=== PATIENT | female | born 1980 | race Caucasian/White ===

== ENCOUNTER 2016-11-15 05:51 | Day surgery (SDC) | payer OTHER ==
[2016-11-15] VITALS (23 sets, daily range): BP systolic 81–114; BP diastolic 39–66; PULSE 59–108; RESP 14–21; O2SAT 93–100
[~2016-11-15] VITALS: Ht 167.6 cm; Wt 109.2 kg
[~2016-11-15 05:51] MED LIST: CA C1TAB77 PO; FLUT16SP NS; MULT-1018 PO; ONDA-53 PO; PENT100C9 PO; PHEN-777 PO
[2016-11-15] MEDS ORDERED: Morphine PF 1 mg/mL 10 mL Inj ONE (05:52)
[2016-11-15] MEDS ORDERED: Dexamethasone 4 mg/mL Inj ONE (05:52)
[2016-11-15] MEDS ORDERED: MetoCLOpramide 5 mg/mL 2 mL Inj ONE (05:52)
[2016-11-15] MEDS ORDERED: Phenylephrine/NS 100 mCg/mL 10 mL Syringe IVPUSH ONE (05:52)
[2016-11-15] MEDS ORDERED: Ketamine 10 mg/mL 20 mL Inj ONE (05:52)
[2016-11-15] MEDS ORDERED: Propofol 10,000 mCg/mL 20 mL Inj ONE (05:52)
[2016-11-15] MEDS ORDERED: Ondansetron 2 mg/mL 2 mL Inj ONE (05:52)
[2016-11-15] MEDS ORDERED: Bupivacaine-MPF 0.75% 30 mL Inj ONE (05:52)
[2016-11-15] MEDS ORDERED: Rocuronium 10 mg/mL 5 mL Inj ONE (05:52)
[2016-11-15] MEDS ORDERED: Clindamycin 900 mg/50 mL D5W IV ONE (06:00)
[2016-11-15] MEDS ORDERED: Phenazopyridine 97.5 mg Tablet PO ONE (06:00)
[2016-11-15] MEDS: Lactated Ringer's 1,000 ML IV SCH ×6 (06:34→21:37)
--- NOTE | 2016-11-15 07:19 | PCM.HPANE ---
Patient Data Surgeon Admitting Provider: Attending Provider:Robin Galicia MD Primary Care Physician:Other,Physician Other Provider:Jhonatan Blum Anesthesia Reason for Visit Uterovag Prolapse,Pelvic Pain,Interstitial Cystiti Ht/WT & BMI Height (Feet): 5 Height (Inches): 6 Weight (Kilograms): 107.4 Body Mass Index 38.00 Allergies Coded Allergies: morphine (Verified Allergy, Severe, ITCHING AND BURNING, 11/15/16) amoxicillin (Verified Allergy, Unknown, rash, respiratory distress, 11/08/16 ) clavulanic acid (Verified Allergy, Unknown, rash, respiratory distress, 11/08/16) rizatriptan (Verified Allergy, Unknown, neck pains, dizziness, vomiting, ) zolmitriptan (Verified Allergy, Unknown, neck pains, dizziness, vomiting, 11/08/16) Past Anesthesia History Anesthesia History: Positive for:: Anesthesia Reactions (BP "crashed"), Denies:: Abnormal Airway, Difficult Intubation, Fam Anesthesia Reaction, Fam Malignant Hypertherm, Malignant Hyperthermia Diabetes History Hx Diabetes?: No MRSA MRSA: No Medications Hypertension Medication: No Home Meds Incl Beta Colin: No Reported Medications Ca Carb/Vit D3/Mag Ox/Zn Oxide (Valentin Mag Zinc + D3 Tablet)1 Each Tablet1 Each PO DAILY 11/08/16 Multivitamin (Multi Vitamin Daily)1 Each Tablet1 Each PO DAILY 30 Days Ref 0 11/08/16 Pentosan Polysulfate Sodium (Elmiron)100 Mg [id number] Mg PO TID 11/08/16 Fluticasone Propionate (Fluticasone Propionate Nasal)16 Gm [place].susp2 [place] NS BID #16 GM Ref 0 11/08/16 Phenazopyridine 200 Mg [id number] Mg PO TID PRN For Pain Ref 0 11/08/16 Ondansetron 4 Mg Tablet4 Mg PO For Nausea 11/08/16 History History of ENT Problems?: Yes HEENT History: Positive for:: Sinus Problem (sinus surgery x 2- , poss sinus infection now) Denies:: Abnormal Airway Cataracts Difficult Intubation Dysphagia Glaucoma Hearing Problem Denture Type: None Teeth Condition: Within Normal Limits Other HEENT Pertinent History: tear in retina bottom right eye- opthamologist - GEORGE jeanette Hx of Heart Problems?: No Cardiovascular History: Positive for:: Irregular Heartbeat (during only) Denies:: AICD Abdominal Aortic Aneurism Atrial Fibrillation Cardiac Surgery Chest Pain Congestive Heart Failure Coronary Artery Disease Edema Heart Murmur Hypertension Pacemaker Peripheral Vascular Rheumatic Fever Thrombophlebitis Valvular Heart Disease Hx of Respiratory Problem?: Yes Respiratory History: Positive for:: Use of C-PAP Machine (CPAP currently broken, ) Denies:: Asthma COPD Oxygen Administration Pneumonia Tuberculosis Use of Inhalers / NEBS Hx Neurologic Problems?: Yes Neurological History: Positive for:: Headaches (migraines once monthly, sinus juarez 1-2x weekly) Denies:: Multiple Sclerosis Parkinson's Disease Seizures Hx of GI Problems?: Yes Hx of Problems?: Yes Genitourinary History: Denies:: Kidney Stones Urinary Tract Infection Other Pertinent History: Interstitial cystitis hx - Female Hx: Denies:: Currently Problems with Breasts? Skin History: Denies:: History Skin Disorders? Pressure Ulcers Hx Musculoskeletal Problems?: Yes Musculoskeletal History: Positive for:: Fibromyalgia Denies:: Back Injury Musculoskeletal Trauma Myasthenia Gravis Osteoarthritis Hx of Psycho/Social Problems?: No Psycho Social History: Denies:: Anxiety Hx Depression Hx Surgeries?: Yes (lap scottie, c section x 2, sinus surgery) Hx Any Other Health Problems?: Yes Other History: Denies:: Cancer Thyroid Disease History Blood Transfusions: Positive for:: Accept Blood Products? Denies:: Blood Transfusions Hx Diabetes: No Hx Alcohol Use: NoHx Substance Use: NoHave You Smoked inLast 12 mo: No Stop/Bang Treated for Sleep Apnea?: No Do You Have a CPAP Machine?: No P-Blood Pressure: treated: No B- Body Mass Index > 35 kg/m2: Yes A- Age over 50: No N- Neck Large Circumference: No G- Gender Male: No REBECCA Risk Assessment: High Risk, =/>3 Yes Risk Assessment Category Category 1A: Patient has history of documented sleep apnea, and HAS NOT received any narcotic, sedative or anesthesia administration during this stay. Category 1B: Patient has history of documented sleep apnea, and HAS received any narcotic , sedative or anesthesia administration during this stay Category 2: Patient has SUSPECTED Obstructive Sleep Apnea, and HAS received any narcotic , sedative or anesthesia administration during this stay. Category 3: Patient has SUSPECTED Obstructive Sleep Apnea and HAS NOT received narcotic, sedative or anesthesia administration during this stay. Category 4: Outpatient in Procedural Areas with known sleep apnea or who screen positive for High Risk via the STOP/BANG questionnaire. Exam Exam Vital Signs Vital Signs Date Time Temp Pulse Resp B/P Pulse Ox O2 Delivery O2 Flow Rate FiO2 11/15/16 06:35 36.4 71 16 102/56 100 Room Air General Appearance: Oriented X3 HEENT/AIRWAY: MP 2 Lungs: Normal Air Movement Heart: Regular Rate/Rhythm Meds/Labs/Diagnostics Admission Meds Current Medications Lactated Ringer's (Lr) 1,000 ml @ 120 mls/hr Q8H20M IV Last administered on 06:34; Start 11/15/16 at 05:00; Stop 11/15/16 at 13:19 Phenazopyridine HCl (Azo Standard) 2 tab ONCE ONCE PO Last administered on 11/15 06:57; Start 11/15/16 at 06:00; Stop 11/15/16 at 06:01; Status DC Plan Impression Patient chart reviewed, patient interviewed and anesthestic plan with risks, benefits, and alternatives discussed, and informed consent obtained. ASA Physical Status: ASA2 Mod Systemic Disease Anesthetic Plan: GA, SAB Bene/Risks/Altern/Consents: Yes HP Complete Prior to Induction: Yes Arnaldo Cherry MD Nov 15, 2016 07:19
[2016-11-15] MEDS: Gentamicin Inj 400 MG in Dextrose 5% 100 ML IV SCH ×2 (07:35→15:03)
[2016-11-15] MEDS ORDERED: Lactated Ringer's 500 ML IV PRN (08:04)
[2016-11-15] MEDS ORDERED: Lactated Ringer's 1,000 ML IV SCH (08:04)
[2016-11-15] MEDS ORDERED: Phenylephrine 10,000 mCg/mL Inj IVPUSH PRN (08:05)
[2016-11-15] MEDS ORDERED: Ondansetron 2 mg/mL 2 mL Inj IVPUSH PRN ×2 (08:05→13:40)
[2016-11-15] MEDS ORDERED: MetoCLOpramide 5 mg/mL 2 mL Inj IVPUSH PRN ×2 (08:05→13:40)
[2016-11-15] MEDS ORDERED: fentaNYL-PF 50 mCg/mL 2 mL Inj IVPUSH PRN (08:05)
[2016-11-15] MEDS ORDERED: Labetalol 5 mg/mL 4 mL Inj IV PRN (08:05)
[2016-11-15] MEDS ORDERED: EPHEDrine Sulfate 50 mg/mL Inj IVPUSH PRN (08:05)
[2016-11-15] MEDS ORDERED: Dexamethasone 4 mg/mL Inj IVPUSH PRN (08:05)
[2016-11-15] MEDS ORDERED: Lidocaine 1%-Epi 1:100,000 20 mL Inj INJ ONE (09:21)
[2016-11-15] MEDS ORDERED: Sodium Chloride Bacteriostatic 30 mL Inj INJ ONE ×3 (09:21→12:10)
[2016-11-15] MEDS ORDERED: Gentamicin 40 mg/mL 2 mL Inj IRRIGATION ONE (09:22)
[2016-11-15] MEDS ORDERED: Lidocaine 1%-Epi 1:100,000 20 mL Inj INFILTRATE ONE (10:46)
[2016-11-15] MEDS ORDERED: Lidocaine 1%-Epi 1:100,000 20 mL Inj NERVEBLOCK ONE (12:09)
[2016-11-15] MEDS ORDERED: Estrogens Conjugated 30 Gm Vaginal Cream VAGINAL ONE (12:44)
[2016-11-15] MEDS ORDERED: Alum-Mag Hydrox-Simeth 30 mL Suspension PO PRN (13:40)
[2016-11-15] MEDS ORDERED: HYDROmorphone 1 mg/mL Inj IVPUSH PRN (13:40)
[2016-11-15] MEDS ORDERED: diphenhydrAMINE 25 mg Capsule PO PRN (13:40)
[2016-11-15] MEDS ORDERED: Phenylephrine/NS-PF 100 mCg/mL 5 mL Syringe IVPUSH ONE (14:02)
[2016-11-15] MEDS: Ondansetron 2 mg/mL 2 mL Inj IVPUSH PRN (14:07)
--- NOTE | 2016-11-15 14:45 | PCM.ANEP1 ---
Post Anesthesia PACU Phase 1 Assessment Vital Signs Vital Signs Date Time Temp Pulse Resp B/P Pulse Ox O2 Delivery O2 Flow Rate FiO2 11/15/16 14:40 90 16 96/50 100 Nasal Cannula 3 11/15/16 14:27 92 21 93/50 100 Nasal Cannula 3 11/15/16 14:17 89 15 99/50 100 Nasal Cannula 3 11/15/16 14:17 15 100 11/15/16 14:09 87 14 91/52 99 Nasal Cannula 3 11/15/16 14:05 88 16 90/52 99 Nasal Cannula 3 11/15/16 14:00 91 16 84/39 99 Nasal Cannula 3 11/15/16 13:55 103 19 91/48 100 Simple Mask 10 11/15/16 13:51 89 16 91/53 100 Simple Mask 10 11/15/16 13:45 95 16 88/50 100 Simple Mask 10 11/15/16 13:40 108 15 92/50 100 Simple Mask 10 11/15/16 13:35 37.4 97 18 114/65 100 Simple Mask 10 Anesthetic Administered: GA Level of Alertness: Awake, talking Pain: No Nausea or Vomiting: No CV Function & Hydration Stable: Yes Airway Device: Lungs: Normal Air Movement Dermatome Level: S2,5 (Perineum) PACU Phase 2 Assessment Patient Instructions Provided: N/A Arnaldo Cherry MD Nov 15, 2016 14:45
--- NOTE | 2016-11-15 15:10 | NUR ---
Post op Arrived to [facility] room 1031 from PACU via stretcher at ~14:45. Report received from Miranda. Pale, diaphoretic, nauseated. BP 83/54, HR 89. Placed Trendelenburg, started LR per orders. Skin now pink, warm and dry. BP up to 95/65 (baseline pre-op 102/70). RA. Lap sites/bandaids and bernardino-pad CDI. Drowsy, wakes easily to voice, oriented. Father at bedside.
[2016-11-15] MEDS ORDERED: Phenazopyridine 97.5 mg Tablet PO PRN (15:25)
[2016-11-15] MEDS: ELMIRON 100 MG PO SCH (16:34)
[2016-11-15] MEDS: Acetaminophen IV 1,000 MG in IV Premix 1 EACH IV SCH ×2 (16:35→22:38)
--- NOTE | 2016-11-15 18:03 | NUR ---
Hypotension Pt hypotensive and intermittently symptomatic with nausea, weak radial pulse and diaphoretic pale skin. Resolves with Trendelenburg position. Reglan given, IVF infusing as ordered. paged; H/H ordered.
[2016-11-15] MEDS ORDERED: 0.9% Sodium Chloride 500 ML IV SCH (18:25)
--- NOTE | 2016-11-15 19:06 | NUR ---
Fluid bolus 500 cc NS bolus given as ordered. Pulse 65, BP 84/51. Asymptomatic at this time. Report given to BETTY PAYTON.
[2016-11-15] MEDS ORDERED: Fluticasone 0.05% 15 Spray/2 Gm 16 Gm Nasal Spray NASAL SCH (20:30)
--- NOTE | 2016-11-15 22:54 | PCM.SURGOP ---
Surgical Operative Report Date of Service: Nov 15, 2016 Pre Operative Diagnosis 1. Pelvic pain in female R10.2 (625.9): 2. Menorrhagia with irregular cycle N92.1 (626.2): 3. Uterovaginal prolapse, incomplete N81.2 (618.2): 4. Cystocele, midline N81.11 (618.01): 5. Rectocele N81.6 (618.04): 6. Hx interstitial cystitis Post Operative Diagnosis 1. Pelvic pain in female R10.2 (625.9): 2. Menorrhagia with irregular cycle N92.1 (626.2): 3. POPQ Stage 2 Uterovaginal prolapse, incomplete N81.2 (618.2): 4. POPQ Stage 2 Cystocele, midline N81.11 (618.01). Deficient pubovesical/ pubocervical fascia 5. Rectocele N81.6 (618.04): 6. Hx of interstitial cystitis 7. Possible endometriosis (pathology pending) Procedure: 1. Laparoscopic-Assisted Vaginal Hysterectomy (Open technique) and bilateral salpingectomy 2. high uterosacral ligament vaginal vault suspension, enterocele repair, 3. anterior repair with biologic Xenform graft augmentation 4. posterior repair 5. hydrodistension cystoscopy Surgeon and Show Operations Supervisor: Surgeon: Robin Galicia MD Assistants: Juan Flores MD Indication for Procedure Her assessment to date includes: 1. Pelvic pain in female R10.2 (625.9): 2. Menorrhagia with irregular cycle N92.1 (626.2): 3. Uterovaginal prolapse, incomplete N81.2 (618.2): 4. Cystocele, midline N81.11 (618.01): 5. Rectocele N81.6 (618.04): 6. Stress incontinence in female N39.3 (625.6): mild, unable to demonstrate on urodynamics. 7. Urge incontinence N39.41 (788.31): mild 8. Nocturia R35.1 (788.43): 9. Incomplete bladder emptying R33.9 (788.21): 10. Fecal incontinence R15.9 (787.60): 11. Pelvic muscle wasting N81.84 12. Hx interstitial cystitis - Urodynamics revealed: pain with bladder filling. She is a surgical candidate for a laparoscopic-assisted vaginal hysterectomy and bilateral salpingectomy, possible adhesiolysis/cautery of endometriosis, high uterosacral ligament vaginal vault suspension, enterocele repair, ant and post repair with possible Xenform graft, and hydrodistension cystoscopy. We were unable to demonstrate stress incontinence today and with urodynamic testing; she does not need a sling at this time. The patient signed the consent form. She agreed with the risks, benefits, and alternatives to surgery. The risks included but not limited to recurrence or persistence of prolapse, recurrence of persistence of incontinence, development of voiding dysfunction, development of urinary urgency, urgency incontinence, frequency, and need for intermittent self-catheterization or prolonged indwelling catheterization, injury to other organs including bladder, bowel, nerves or blood vessels. Need for blood transfusion, need for temporary colostomy or urinary stenting. Development of vaginal scarring, dyspareunia, defecatory dysfunction, recurring pain, hematoma formation, urinary tract infection, cellulitis, necrotizing fascitis, and medical risks including myocardial infarction, stroke or VTE. She also understood the FDA warnings associated with the use of vaginal mesh (dysparunia, vaginal erosion, erosion into bowel/bladder/urethra, requiring further surgery to correct these complications). Findings: see dictation Procedure Details SURGICAL TECHNIQUE: The patient was brought to the operating room and was given a Durimorph block and then placed under general anesthesia. She was prepped and draped in the normal fashion for laparoscopic and vaginal surgery with the legs in Yellofin stirrups. She was given a dose of IV clindamycin and gentamicin intraoperatively. She received 200 mg of oral pyridium in the preop holding area. A 16F ayala catheter was inserted and allowed to drain into a bag. 1.Laparoscopic-Assisted Vaginal Hysterectomy (Open technique) and bilateral salpingectomy: An Bertrand uterine manipulator was inserted into the cervix and secured via a single-tooth tenaculum attached to the anterior lip of the cervix. Lidocaine 0.5% with 1:200,000 of epinephrine was along the infraumbilical, suprapubic and right/left lower quadrant areas. Using the open laparoscopy technique, a horizontal infraumbilical incision was made along the skin. Using S-retractors, blunt dissection was used to dissect through the subcutaneous fat to reach the fascia. The fascia was tented up with 2 Kochers and incised with a scalpel. 0 Vicryl sutures (x2) were passed through the angles of the 10 mm fascial incision. The rectus muscle was gently sweeped laterally and the peritoneum was tented with 2 hemostats. A scalpel was used to incise the peritoneum to enter the abdominal cavity. A gloved finger was inserted into the incision. It was noted that there were no adhesions under the bernardino- umbilical incision. However, there were omental adhesions superior to the umbilicus from her previous laparoscopic cholecystectomy (where they has chosen a supra-umbilical incision). We then inserted the Silvestre trocar into the incision. The abdomen was insufflated with approximately 3.5 liters of gas. She was placed in Trendelenberg position. Next a 5 mm port was inserted into a suprapubic incision under direct vision via a 5 mm trocar. A second and third 5 -mm ports were inserted under direct vision in the LLQ and RLQ of the abdomen, avoiding the abdominal wall vessels via transillumination. Laparoscopic assessment along the infraumbilical incision revealed no injury to the omentum, bowel or other structures. Again, there were omental adhesions superior to the umbilicus from her previous laparoscopic cholecystectomy. No significant adhesions were noted in the pelvis. In the pelvis, the uterus had several clear vesicles suspicious for endometriosis along the right serosa. The tubes and ovaries appeared normal. There were mild adhesions along the anterior bladder peritoneum from her previous c-sections. The cul-de-sac appeared normal. In the upper abdomen, there were no bernardino-hepatic adhesions. There was a small, dark nodule on the right colon/omentum suspicious of an endometriotic particle. Due to its sensitive location on the bowel this was left alone. (This could be followed up with GI/Gen Surg in the future). The uterus was anteverted with the manipulator. Using the ImmuVenunderbeat system cutting forceps, the R tube was dissected off the attached ovary, leaving it attached to the uterus, and keeping the infundibulopelvic ligaments with its blood supply intact. Next, the utero-ovarian and round ligaments, and uterine vessels were coagulated and divided using the Thunderbeat on the right side. The same procedure was performed on the left side as well. Care was taken to identify the ureters and avoid them. The abdomen and pelvis were then irrigated with sterile fluid. Hemostasis was noted to be adequate. All instruments were retained to allow us a second look in the pelvis at the end of the case. We then proceeded with the vaginal portion of the hysterectomy. 0.5% lidocaine with 1/665147 epi was infiltrated pericervically. A pericervical incision was made with the cut setting of the cautery. Anteriorly, the bladder was sharply dissected off the cervix. Posteriorly, the cul de sac was entered with sharp dissection. The bowels were packed with a mini-laparotomy sponge. The uterosacral ligaments were bilaterally clamped, divided and then tied in a transfixion fashion with 0-vicryl suture. Anteriorly, the uterovesical peritoneum was entered with sharp dissection and the bladder was retracted upward with a right-angle retractor. The remainder of the uterine vessels were then clamped, ligated and tied with 0-vicryl. The uterine body, tubes and cervix was then delivered and submitted to pathology. 2-0 Vicryl suture was applied to the R and L cuff to achieve adequate hemostasis. It was then noted that the pedicles and cuff were hemostatic. 2. High uterosacral ligament vaginal vault suspension, cystoscopy and enterocele repair: Mini-laparotomy sponges were packed to retract the bowel upwards. A pair of Allis clamps were placed along the intraperitoneal portions of the vagina at the 5 and 7 o'clock positions. Tension along these Allis clamps allowed for identification of the uterosacral ligaments bilaterally. A pair of 0 Vicryl sutures were passed around the uterosacral ligaments of the level of the ischial spine bilaterally, totalling 4. Cystoscopy was performed while applying tension to the vault suspension sutures. Cystoscopy was normal. Both ureteric orifices were visualized and noted to be functional by the brisk spillage of Pyridium-stained urine. Next, a two 3-0 Prolene sutures were placed transversely through the cul-de-sac peritoneum. This was performed while using a gloved finger in the rectum as to avoid penetrating the underlying rectal mucosa. Tying these sutures obliterated the enterocele. 3. Anterior colporrhaphy with Xenform graft augmentation: Lidocaine 0.5% with 1 /[id number] epinephrine was infiltrated along the anterior vaginal wall mucosa. A midline vertical incision was made through the anterior vaginal wall. The vaginal wall was dissected off the underlying pubocervical and pubovesical fascia. The dissection was extended laterally beyond the ischial pubic rami. It was noted that the pubocervical and pubovesical fascial tissues were deficient and thin. The cystocele was plicated in 2 layers, the first layer with 2-0 Vicryl suture in interrupted fashion, the second layer with 2-0 Tycron suture in an interrupted fashion. To aid in hemostasis, pieces of Gelfoam were placed near the bladder pillars. A trapezoidal piece of Xenform graft was then incorporated atop the plicated area. Far laterally, the graft was secured to the obturator internus membrane. At the level of the bladder neck, an upside down triangular piece of graft was excised so that there was no over-support created along the level of the bladder neck. Apically, the graft was passed through the proximal uterosacral ligament sutures. Minimal excess anterior vaginal mucosa was needed to be excised. The vault suspension sutures were then passed through the planned apex of the vagina. Two were placed through the anterior apex and the other two, through the posterior apex. The vagina was then reapproximated using 3-0 Vicryl suture in a running-locked fashion. The high uterosacral ligament vaginal vault suspension sutures were tied and this elevated the apex of the vagina high up into the hollow of the sacrum. 4. Posterior colpoperineorrhaphy: Lidocaine 1% with 1:200,000 of epinephrine was infiltrated along the perineum and posterior vaginal wall mucosa. A thin wedge of perineum was excised with a scalpel and a midline vertical incision was made through the posterior vaginal wall. The vaginal mucosa was dissected off the underlying rectovaginal tissues. It was noted the fascial tissues were sufficient. The rectocele was plicated in one layer using 2-0 Vicryl suture in an interrupted fashion. A small amount of excess posterior vaginal mucosa was excised. The vagina was reapproximated with 2-0 vicryl suture in a running locked fashion. The perineum was reapproximated using 2-0 Vicryl suture in an interrupted fashion. The skin was reapproximated using 3-0 Vicryl suture in a subcuticular fashion. 5. Cystoscopy with hydrodistension. Next the bladder was filled with sterile water at a pressure of 100 cm H2O under gravity. Periurethral pressure was used to keep water from escaping the bladder. Once flow had halted, a 2 minute waiting period was made to elapse to distend the bladder for 2 minutes. The bladder was then emptied. The fliud volume measured was 700 mL. Minimal Terminal bloody effluent was noted. Another 2 minute period of hydrodistension was then repeated. The measured fluid was 700 ml again, with terminal bloody effluent. Cystoscopy was repeated. Minimal petechiae and glomerulations were noted in the bladder. A second-look laparoscopically was made in the pelvis. Using irrigation with sterile water, there was no active bleeding noted. Small clots were evacuated with the graspers. The laparoscopic instruments were then removed under direct vision as the abdomen was de-insufflating. The fascia along the infraumbilical incision was closed using 0 Vicryl suture in a running fashion. After irrigating the skin incision, the skin was reapproximated using 4-0 Vicryl suture in a subcuticular fashion. The lower skin incisions, suprapubically and along the left and right lower quadrant, were reapproximated using 4-0 Vicryl subcuticular suture, Mastisol solution, Steri-Strips, and Band-Aids. The vagina was packed with Premarin-lubricated packing. An indwelling 16F ayala catheter was connected to straight drainage. The patient's hips were periodically deflexed during the case. There were no complications. The EBL was 350 ml. She received 1500 ml of IV fluid during the case. All sponges and instruments were accounted for. She was taken to the recovery room in stable condition. Complications There were no periprocedural complications identified. Surgical Specimen Removed: Yes Specimen sent to Pathology: Yes Surgical Specimen description: uterus, cervix, and tubes Anesthetic Plan: GA, SAB Grafts, Implants: Grafts-See Implant Record Output, Estimated Blood Loss: 350 (ml EBL) Blood Administration during downs: No Drains: None Catheters: Urethral 2 Way Ayala Post Operative Plan overnight stay in bed as outpatient as she requires a voiding trial in the am copies to: Juan Flores MD; Robin Galicia MD, William Andre Z MD Nov 15, 2016 22:54
[2016-11-16] MEDS: Acetaminophen IV 1,000 MG in IV Premix 1 EACH IV SCH ×3 (01:40→13:40)
[2016-11-16] MEDS: Lactated Ringer's 1,000 ML IV SCH ×2 (03:28→13:37)
[2016-11-16 04:30] VITALS: BP 109/66; PULSE 92; RESP 17; O2SAT 95
[2016-11-16] MEDS: Ondansetron 2 mg/mL 2 mL Inj IVPUSH PRN ×2 (05:30→10:19)
--- NOTE | 2016-11-16 05:49 | NUR ---
Pain Patient complains of severe cramping abd pain, and rates it 8/10. IV tylenol has been completed, and patient does not feel PO tylenol will be enough to alleviate pain. 1mg dilaudid given IVP, with 4mg zofran IVP. Upon reassessment patient rates pain 2/10. BP 105/64 HR 80. Prior to administration BP 109/66 HR 92. O2 98% on 2 L of oxygen via NC. When patient would fall asleep, o2 was required to maintain sats >92%. Patient is A&OX3 and follows commands appropriately. Will continue to closely monitor.
[2016-11-16 05:50] VITALS: BP 105/64; PULSE 80
[2016-11-16 06:26] LABS: BASOPHILS % (AUTO) 0.1 % (0-3); EOSINOPHILS % (AUTO) 0.2 % (0-5); MONOCYTES % (AUTO) 7.3 % (4-12); Mean Corpuscular Hemoglobin 28.9 pg (27.0-35.0); Mean Corpuscular Volume 87.3 fL (81-100); NEUTROPHILS % (AUTO) 78.4 % (40-74); Platelet Count 262 bil/L (150-400)
[2016-11-16] MEDS: ELMIRON 100 MG PO SCH ×2 (07:30→11:30)
[2016-11-16] MEDS ORDERED: Senna-Docusate 8.6-50 mg Tablet PO SCH (08:30)
[2016-11-16] MEDS ORDERED: Heparin 5,000 Unit/mL Inj SUBQ SCH (08:30)
[2016-11-16] MEDS ORDERED: Fluticasone 0.05% 15 Spray/2 Gm 16 Gm Nasal Spray NASAL SCH (08:30)
[2016-11-16 11:01] VITALS: BP 109/69; PULSE 77; RESP 19; O2SAT 95
--- NOTE | 2016-11-16 11:25 | PCM.DIGYN ---
Surgical Discharge Instruction Dates of Hospitalization Date of Hospital Admission 11/15/16 outpatient Providers Admitting Physician: Primary Care Physician: Other,Physician Attending Physician: Robin Galicia MD Diagnosis at Time of Discharge Diagnosis at time of discharge 1. Pelvic pain in female R10.2 (625.9): 2. Menorrhagia with irregular cycle N92.1 (626.2): 3. POPQ Stage 2 Uterovaginal prolapse, incomplete N81.2 (618.2): 4. POPQ Stage 2 Cystocele, midline N81.11 (618.01). Deficient pubovesical/ pubocervical fascia 5. Rectocele N81.6 (618.04): 6. Hx of interstitial cystitis 7. Possible endometriosis (pathology pending) Post-operative diagnosis 1. Pelvic pain in female R10.2 (625.9): 2. Menorrhagia with irregular cycle N92.1 (626.2): 3. POPQ Stage 2 Uterovaginal prolapse, incomplete N81.2 (618.2): 4. POPQ Stage 2 Cystocele, midline N81.11 (618.01). Deficient pubovesical/ pubocervical fascia 5. Rectocele N81.6 (618.04): 6. Hx of interstitial cystitis 7. Possible endometriosis (pathology pending) Problems: Diet Discharge Diet: No restrictions Activity Discharge Activity-General: Restrict lifting to no greater than (10 lbs for 6 wk. No intercourse for 6 wk) Dressing and Incisional Care Dressing Care: Allow Steri Stripes to fall off Hygiene: May shower Follow Up Plan Follow-up appointment: Weeks (two with Dr. Galicia; also f/u in 1 wk with his MA if home with a ayala) Call your provider for: Fever, Chills, Shortness of breath, Vomitting, Drainage at incision, Heavy vaginal bleeding, Wound redness, Increasing pain Robin Galicia MD Nov 16, 2016 11:25
--- NOTE | 2016-11-16 12:42 | PCM.PNSURG ---
Subjective Date of Service: Nov 16, 2016 Date of Service: Nov 16, 2016 Visit Information: Reason for Visit Uterovag Prolapse,Pelvic Pain,Interstitial Cystiti Surgery/Surgery Date Post-Op Day # 1 Subjective: AVSS BP 100's systolic (similar to preop BP's) Denies further lightheadedness when getting up received bolus IV fluid yesterday U/O good eating ambulating pain controlled, oral diladid with zofran Hct stable 30.2 Objective Vital Sign- Last 8 Hours Date Time Temp Pulse Resp B/P Pulse Ox O2 Delivery O2 Flow Rate FiO2 11/16/16 11:01 36.6 77 19 109/69 95 Room Air 11/16/16 05:50 80 105/64 Intake and Output- Last 8 Hour 11/16/16 Cumulative From/Thru 07:00 11/08/16 14:55 - 11/16/16 05:25 Intake Total 1600 ml 4850 ml Output Total 1300 ml 2280 ml Balance 300 ml 2570 ml Intake Oral 1600 ml 1660 ml IV Total 3190 ml Output Urine Total 1300 ml 1580 ml Estimated Blood Loss 700 ml # Bowel Movements 0 0 General: Alert, Oriented X3, Cooperative Lungs: Clear to Auscultation Abdomen: Benign, Soft Result Diagram: 11/16/16 0607 Assessment & Plan Impression stable for discharge Problems: Plan eat iron rich foods d/c home later today f/u in 2 wk; also 1 wk if home with ayala copies to: Robin Galicia MD, William Andre Z MD Nov 16, 2016 12:42
--- NOTE | 2016-11-16 15:22 | NUR ---
Discharge: Patient off unit at 1520 in wheelchair accompanied by father with all belongings. IV catheter DC'd intact, vitals stable. Discharge instructions and medications reviewed, patient verbalized understanding. Return demonstration on catheter care and bladder emptying. Pain well controlled with PO dilaudid and zofran.
--- NOTE | 2016-11-17 15:21 | PATH ---
SURGICAL PATHOLOGY Attending Physician:Robin Galicia, CASE STATUS: Signed Out PATIENT NAME: SIMON FOSTER PID: [id number] : 1980 DATE COLLECTED:11/15/2016 23:24 SPECIMEN: Uterus +/- tubes/ovaries, except neoplastic, prolapse CLINICAL HISTORY: UTEROVAGINAL PROLAPSE, PELVIC PAIN, INTERSTITIAL CYSTITI 1). UTERUS, CERVIX, RIGHT AND LEFT FALLOPIAN TUBES FINAL DIAGNOSIS: UTERUS, CERVIX, RIGHT AND LEFT FALLOPIAN TUBES, HYSTERECTOMY AND BILATERAL SALPINGECTOMY: 1. INACTIVE ENDOMETRIUM WITH NO EVIDENCE OF NEOPLASIA OR HYPERPLASIA. 2.CERVIX WITH NO EVIDENCE OF INTRAEPITHELIAL NEOPLASIA/DYSPLASIA. 3.BENIGN FALLOPIAN TUBES WITH NO EVIDENCE OF NEOPLASIA. ICD10 N81.4 GROSS DESCRIPTION: The specimen is received in formalin, labeled with the patient's name, sublabeled as uterus, cervix, right, left tubes, and consists of a uterus (125 g, 4.9 cm AP, 10.2 cm SI, 6.2 cm ML) with attached fimbriated fallopian tubes (right: length-7.3 cm, diameter-0.5 cm; left: length-7.0 cm, diameter-0.7 cm). The ovaries are absent. The cervix (2.0 cm AP, 2.8 cm ML) has a transverse os and patent endocervical canal. The endometrium (average thickness-0.1 cm) is tsai-pink smooth and flat. The myometrium (thickness-2.4 cm) is tsai-white and unremarkable. The serosa is tsai smooth and shiny. The fallopian tubes have dark maroon smooth shiny and tsai unremarkable lumens. Section code: (A) anterior cervix; (B) posterior cervix; (C, D) anterior endomyometrium; (E, F) posterior endomyometrium; (G) right fallopian tube, serially sectioned, entry level sales representative; (H) right fimbria, bivalved, entirely submitted; (J) left fallopian tube, serially sectioned, entry level sales representative; (K) left fimbria, bivalved, entirely submitted. 11/16/16 JM MICRO DESCRIPTION: See diagnosis. ICD-9 CODES: CPT CODES: 1: 97474 Electronically Signed Out Shu Lucero MD [facility] [address], [place] [address] Technical component performed at [facility], [address], [place], [address]
== END 2016-11-16 15:22 | disposition home or self-care (01) ==
LOC: SAS 05:51 → OSC 15:16 → SAS 11-16 15:22
PROVIDERS: ATTEND Obstetrics & Gynecology
DX: N81.2 Incomplete uterovaginal prolapse (principal); N92.1 Excessive and frequent menstruation with irregular cycle; N81.11 Cystocele, midline; N81.6 Rectocele; R10.2 Pelvic and perineal pain; N30.10 Interstitial cystitis (chronic) without hematuria; G89.18 Other acute postprocedural pain; K21.9 Gastro-esophageal reflux disease without esophagitis; F41.9 Anxiety disorder, unspecified; M79.7 Fibromyalgia; K58.9 Irritable bowel syndrome, unspecified; Z86.69 Personal history of other diseases of the nervous system and sense organs
CPT/HCPCS: 36415; 52260; 57265; 57267; 57283; 58552; 85014; 85018; 85025; 86850; 88307; 96372; 96374; 96375; 96376; C1763; J0131; J1100; J1170; J1200; J1580; J1644; J2250; J2274; J2370; J2405; J2704; J2765; J3490; J7040; J7120